=== PATIENT | female | born 1965 | race African-American/Black ===

== ENCOUNTER → 2020-03-28 16:51 | Outpatient (CLI) | payer OTHER, SELFPAY ==
--- NOTE | ~2020-03-28 | XR_ITS ---
XR abdomen/kub 1V 03/28/2020 17:21 Indication: Abdominal pain Procedure: KUB Comparison: No prior studies for comparison. Findings: Bowel gas pattern is nonobstructive. Moderate colonic fecal loading. No abnormal calcificat ions to suggest renal stone. Lung bases unremarkable. Mild levocurvature of the lumbar spine. No acut e osseous abnormality. There are pelvic phleboliths. Impression: 1: Nonobstructive bowel gas pattern. Reviewed, dictated and finalized at location A. Impression: 1: Nonobstructive bowel gas pattern.
== END ==
PROVIDERS: PCP Family Medicine; Visit Provider Nurse Practitioner Family
DX: R10.9 Unspecified abdominal pain (principal); Z87.442 Personal history of urinary calculi
CPT/HCPCS: 74018

== ENCOUNTER 2020-04-02 13:51 | Outpatient (RCR) | payer OTHER, SELFPAY | END 2020-07-01 23:59 | disposition home or self-care (01) | LOC: ANHDMC 13:51 | PROVIDERS: PCP Family Medicine; Visit Provider Nurse Practitioner Family | DX: E11.43 Type 2 diabetes mellitus with diabetic autonomic (poly)neuropathy (principal); Z71.89 Other specified counseling | CPT/HCPCS: G0108 ==

== ENCOUNTER 2020-09-24 14:05 | Outpatient (RCR) | payer OTHER, SELFPAY | END 2020-12-09 14:14 | disposition home or self-care (01) | LOC: ANHDMC 14:05 | PROVIDERS: PCP Family Medicine; Visit Provider Nurse Practitioner Family | DX: E11.43 Type 2 diabetes mellitus with diabetic autonomic (poly)neuropathy (principal); Z71.89 Other specified counseling | CPT/HCPCS: G0108 ==

== ENCOUNTER 2021-05-22 14:00 | Outpatient (RCR) | payer OTHER, SELFPAY | END 2021-06-23 09:21 | disposition home or self-care (01) | LOC: ANHDMC 14:00 | PROVIDERS: PCP Family Medicine; Referring Provider Nurse Practitioner Family; Visit Provider Nurse Practitioner Family | DX: E11.43 Type 2 diabetes mellitus with diabetic autonomic (poly)neuropathy (principal); Z71.89 Other specified counseling | CPT/HCPCS: G0108 ==

== ENCOUNTER 2021-11-13 13:58 | Outpatient (RCR) | payer OTHER, SELFPAY | END 2022-02-02 13:58 | disposition home or self-care (01) | LOC: ANHDMC 13:58 | PROVIDERS: PCP Family Medicine; Referring Provider Nurse Practitioner Family; Visit Provider Nurse Practitioner Family | DX: E11.43 Type 2 diabetes mellitus with diabetic autonomic (poly)neuropathy (principal); E11.65 Type 2 diabetes mellitus with hyperglycemia; Z71.89 Other specified counseling | CPT/HCPCS: G0108 ==

== ENCOUNTER 2022-05-25 15:28 | Outpatient (CLI) | payer OTHER, SELFPAY ==
--- NOTE | 2022-05-25 15:37 | ECG_ITS ---
Measurements Intervals Star Rate: 100 P: 63 IA: 140 QRS: 58 QRSD: 85 T: -11 QT: 352 QTc: 455 Interpretive Statements SINUS TACHYCARDIA POSSIBLE LEFT ATRIAL ENLARGEMENT [-0.1mV P WAVE IN V1/V2] NONSPECIFIC ST AND T-WAVE ABNORMALITY NO PREVIOUS ECG AVAILABLE FOR COMPARISON Electronically Signed On 05-25-2022 15:57:56 CDT by Jerrell Goodwin M.D.
== END 2022-05-25 15:29 | disposition home or self-care (01) ==
LOC: ANHCARD 15:30
PROVIDERS: PCP Family Medicine; Visit Provider Nurse Practitioner Family
DX: Z01.810 Encounter for preprocedural cardiovascular examination (principal)
CPT/HCPCS: 93005

== ENCOUNTER 2022-07-23 15:30 | Outpatient (RCR) | payer OTHER, SELFPAY | END 2022-08-11 09:45 | disposition home or self-care (01) | LOC: ANHDMC 15:30 | PROVIDERS: PCP Family Medicine; Referring Provider Nurse Practitioner Family; Visit Provider Nurse Practitioner Family | DX: E11.43 Type 2 diabetes mellitus with diabetic autonomic (poly)neuropathy (principal); E11.65 Type 2 diabetes mellitus with hyperglycemia; Z71.89 Other specified counseling | CPT/HCPCS: G0108 ==

== ENCOUNTER 2022-08-09 11:49 | Emergency (ER) | payer OTHER, SELFPAY ==
[2022-08-09 12:01] VITALS: BP 194/102; PULSE 101; RESP 16; TEMP 36.4; O2SAT 99
--- NOTE | 2022-08-09 12:27 | ED.ABDPAIN ---
HPI - Abdominal Pain General Chief Complaint: Nausea/Vomiting/Diarrhea Stated Complaint: n/v/d Time Seen by Provider: 08/09/22 12:27 Source: patient, RN notes reviewed and old records reviewed Mode of arrival: ambulatory Limitations: no limitations History of Present Illness HPI narrative: 56-year-old female with a history of hypertension and diabetes presents to the [facility] with nausea and abdominal pain that started about an hour and a half prior to arrival. Had similar symptoms a week ago. Patient takes her blood pressure medication at night. States she did not use her insulin today because she thought she was going to need some testing. Per patient's [employer] blood sugar 343 MD elicited complaint: abdominal pain Pertinent past history: other (Diabetes) Related Data Home Medications Medication Instructions Recorded Confirmed blood-glucose meter (Contour Meter) #1 ea 10/19/19 05/28/22 amlodipine 10 mg-benazepril 40 mg 1 cap PO DAILY 05/22/22 05/28/22 capsule insulin lispro protamine-lispro 40 unit subcut BID 07/30/22 100 unit/mL (75-25) subcutaneous pen (Humalog Mix 75-25 KwikPen) prednisone ophthalmic (eye) 07/30/22 B Complex-Vitamin B12 08/09/22 Iron 08/09/22 ascorbate sodium (vitamin C) 08/09/22 prednisolone acetate 1 % eye drp 08/09/22 drops,suspension Allergies Allergy/AdvReac Type Severity Reaction Status Date / Time gabapentin Allergy Severe nausea Verified 08/09/22 11:52 mold Allergy Unknown Unknown Verified 08/09/22 11:52 metformin AdvReac Mild Nausea and Verified 08/09/22 11:52 Vomiting Review of Systems Review of Systems: All systems reviewed & are unremarkable except as noted in HPI and below Constitutional: Constitutional: Reports no additional constitutional complaints, Denies chills and Denies fever(s) Eyes: Eyes: Reports no additional eye complaints ENT: Reports system reviewed and no additional complaints, except as documented Cardiovascular: Cardiovascular: Reports no additional cardiovascular complaints Respiratory: Respiratory: Reports no additional respiratory complaints Gastrointestinal: Gastrointestinal: Reports as per HPI, Reports abdominal pain, Denies bloating, Denies constipation, Reports nausea and Denies vomiting Musculoskeletal: Musculoskeletal: Reports no additional musculoskeletal complaints Integumentary/Breasts: Skin/Breast: Reports system reviewed and no additional complaints, except as docu Neurologic: Reports system reviewed and no additional complaints, except as documented Psychiatric: Psychiatric: Reports no additional psychiatric complaints Allergic/Immunologic: Allergic/Immunologic: Reports no additional allergic/immunologic complaints PMFSH Past Medical History Medical History Diabetic autonomic neuropathy associated with type 2 diabetes mellitus (~2017) Diabetic retinopathy Essential (primary) hypertension (~2004) History of calculus of kidney during Hyperlipidemia, unspecified Peptic gastritis Sickle-cell disease without crisis Type 2 diabetes mellitus with hyperglycemia (~2004) Vitamin D deficiency, unspecified (~2017) Surgical History Surgical History H/O inguinal hernia repair (~1964) repeat: 1966, 1973 (bilateral repair:Children[facility] repair) H/O: hysterectomy (~2008) d/t fibroids: w/o oophorectomy History of eye surgery 06/23/2022, bilateral Family History Family History Father Malignant neoplasm of prostate, Onset Age: 72 Patient's father is Mother Family history of diabetes mellitus in first degree relative Other Depression Diabetes mellitus Family history of blood dyscrasia Family history of cardiovascular disease Family history of hearing loss Hypertension Social History Social History (Reviewed 08/09/22 @ 13
--- NOTE | 2022-08-09 12:34 | PC.NURSE ---
provider to provider report in progress.
== END 2022-08-09 12:40 | disposition short-term general hospital (02) ==
LOC: EXPCOLL 11:56
PROVIDERS: Emergency Provider Nurse Practitioner; PCP Family Medicine
DX: R10.12 Left upper quadrant pain (principal); E11.65 Type 2 diabetes mellitus with hyperglycemia; Z79.4 Long term (current) use of insulin; I10 Essential (primary) hypertension; E11.43 Type 2 diabetes mellitus with diabetic autonomic (poly)neuropathy; E11.319 Type 2 diabetes mellitus with unspecified diabetic retinopathy without macular edema; E78.5 Hyperlipidemia, unspecified; D57.1 Sickle-cell disease without crisis
CPT/HCPCS: 99212; G0463

== ENCOUNTER 2022-08-09 13:01 | Emergency (ER) | payer OTHER, SELFPAY ==
--- NOTE | ~2022-08-09 | XR_ITS ---
EXAM: XR abdomen/kub 1V DATE: 08/09/2022 14:24 HISTORY: Left upper quadrant pain . COMPARISON: CT abdomen and pelvis, same date. FINDINGS: Normal bowel gas pattern. No organomegaly. Excreted contrast in the collecting system. Pel karyn phleboliths. Mild degenerative change in lumbar spine. IMPRESSION: No radiographic evidence of obstruction or ileus. Reviewed, dictated and finalized at location K.
--- NOTE | ~2022-08-09 | CT_ITS ---
EXAMINATION: CT abdomen pelvis w con DATE: 08/09/2022 14:22 INDICATION: Left upper quadrant pain TECHNIQUE: Computed tomography (CT) of the abdomen and pelvis was performed with 100 mL Omnipaque-350 intravenous contrast. Automated exposure control and iterative reconstruction technique were employe d. The dose-length product was 370.83 mGy-cm. COMPARISON: 06/29/2018. FINDINGS: Lower thorax: Small hiatal hernia. Liver: Mild enlargement. Fatty infiltration. Biliary/Gallbladder: Gallbladder is normal. No bile duct dilation. Pancreas: No mass or duct dilation. Spleen: Normal. Adrenals:No mass. Kidneys: No mass, stone, or hydronephrosis. GI tract: Distal esophageal and gastric wall edema. No small or large bowel dilation. Normal appendix . Mild scattered diverticulosis without diverticulitis. Mesentery/Peritoneum: No ascites, mass, or free air. Retroperitoneum: No mass. Mild atherosclerotic abdominal aortic and/or arterial calcifications. Pelvis: Uterus is absent, remaining pelvic organs are within normal limits. Soft Tissues: Soft tissues and body wall unremarkable. Bones: No acute osseous finding. IMPRESSION: Mild hepatomegaly. Steatosis. Esophagitis/gastritis. No CT evidence of urolithiasis, obstructive urop athy, or diverticulitis. Reviewed, dictated and finalized at location K. IMPRESSION: Mild hepatomegaly. Steatosis. Esophagitis/gastritis. No CT evidence of urolithi asis, obstructive uropathy, or diverticulitis.
[2022-08-09 13:09] VITALS: BP 156/91; PULSE 102; RESP 12; TEMP 36.4; O2SAT 99
--- NOTE | 2022-08-09 13:32 | ED.ABDPAIN ---
HPI - Abdominal Pain General Chief Complaint: Abdominal Pain Stated Complaint: Left sided abdominal pain, sent from urgent care Time Seen by Provider: 08/09/22 13:30 Source: patient and family Mode of arrival: ambulatory Limitations: no limitations History of Present Illness HPI narrative: 56 years old -Portuguese female presents with periodic left abdominal pain for months. Got worse today. She denies any fever, chills, vomiting, diarrhea, constipation, urinary symptoms, vaginal bleeding or discharge also denies any shortness of breath, chest pain or respiratory symptoms Related Data Home Medications Medication Instructions Recorded Confirmed blood-glucose meter (Contour Meter) #1 ea 10/19/19 05/28/22 amlodipine 10 mg-benazepril 40 mg 1 cap PO DAILY 05/22/22 05/28/22 capsule insulin lispro protamine-lispro 40 unit subcut BID 07/30/22 100 unit/mL (75-25) subcutaneous pen (Humalog Mix 75-25 KwikPen) prednisone ophthalmic (eye) 07/30/22 B Complex-Vitamin B12 08/09/22 Iron 08/09/22 ascorbate sodium (vitamin C) 08/09/22 prednisolone acetate 1 % eye drp 08/09/22 drops,suspension Allergies Allergy/AdvReac Type Severity Reaction Status Date / Time gabapentin Allergy Severe nausea Verified 08/09/22 11:52 mold Allergy Unknown Unknown Verified 08/09/22 11:52 metformin AdvReac Mild Nausea and Verified 08/09/22 11:52 Vomiting Review of Systems Review of Systems: All systems reviewed & are unremarkable except as noted in HPI and below PMFSH Past Medical History Medical History Diabetic autonomic neuropathy associated with type 2 diabetes mellitus (~2017) Diabetic retinopathy Essential (primary) hypertension (~2004) History of calculus of kidney during Hyperlipidemia, unspecified Peptic gastritis Sickle-cell disease without crisis Type 2 diabetes mellitus with hyperglycemia (~2004) Vitamin D deficiency, unspecified (~2017) Surgical History Surgical History H/O inguinal hernia repair (~1964) repeat: 1966, 1973 (bilateral repair:Children's repair) H/O: hysterectomy (~2008) d/t fibroids: w/o oophorectomy History of eye surgery 06/23/2022, bilateral Family History Family History Father Malignant neoplasm of prostate, Onset Age: 72 Patient's father is Mother Family history of diabetes mellitus in first degree relative Other Depression Diabetes mellitus Family history of blood dyscrasia Family history of cardiovascular disease Family history of hearing loss Hypertension Social History Social History Smoking status: Never smoker Second hand tobacco smoke exposure: No Alcohol intake: never Substance use: never Additional living arrangements comments: w son 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: 3 11/30 sites Gender identity (if verbalized by the patient): Female Spiritual care concerns: No (Samaritan: Scientologist: active) Agree to blood products: Yes Exam Narrative: General appearance: Well-developed, well-nourished Skin: Normal color Head: Normocephalic, nontraumatic Eyes: Clear conjunctiva ENT: Oropharynx normal, ears normal, nose normal Neck: Supple, nontender Chest and respiratory: Airway patent, no respiratory distress, no accessory muscle use Heart: Regular rate/rhythm Abdomen: Soft, tenderness left upper quadrant, no organomegaly, quiet bowel sounds Vascular: Normal peripheral pulses, normal capillary refill. Musculoskeletal: Normal range of motion, nontender back Neurologic: Alert and oriented ?3, [employer]IC is normal as tested, no gross motor deficit
[2022-08-09 13:58] LABS: Basophils Percent Auto 0.5 % (0.2-1.2); Eosinophils Absolute Auto 0.1 K/mm3 (0-0.3); Eosinophils Percent Auto 0.8 % (0-4.4); Hematocrit 42.5 % (37.0-47.0); Hemoglobin 14.2 g/dL (12.0-15.0); Immature Granulocyte Absolute 0.02 K/mm3 (0.00-0.031); Immature Granulocyte Percent A 0.3 % (0-0.5); Lymphocytes Percent Auto 26.7 % (18.3-44.2); Mean Corpuscular HGB Conc 33.4 g/dl (32-36); Mean Corpuscular Hemoglobin 26.9 pg (26-34); Mean Corpuscular Volume 80.6 fl (80-100); Mean Platelet Volume 9.8 fl (7.4-10.4); Monocytes Absolute Auto 0.5 K/mm3 (0.1-0.6); Monocytes Percent Auto 6.8 % (2.6-8.5); Neutrophils Absolute Auto 4.9 K/mm3 (1.3-6.7); Neutrophils Percent Auto 64.9 % (45.5-73.1); Platelet Count Result 279 k/mm3 (150-375); Red Blood Count 5.27 M/mm3 (4.2-5.4); Red Cell Distribution Width 13.5 % (11.5-14.5); White Blood Count 7.5 K/mm3 (4.5-10.0)
[2022-08-09 14:00] LABS: Appearance Urine Clear (Clear); Bilirubin Urine Negative (Negative); Blood Urine Negative (Negative); Color Urine Yellow (Yellow); Glucose Urine UA 3+ mg/dL (Negative); Ketones Urine 1+ mg/dL (Negative); Leukocyte Esterase Ur Trace LEU/UL (Negative); Nitrate Urine Negative (Negative); Protein Urine Negative (Negative); Specific Grav Ur 1.015 (1.001-1.035); Urobilinogen Urine 0.2 mg/dL (<2.0); pH Urine 6.5 (5.0-9.0)
[2022-08-09 14:08] LABS: Alanine Aminotransferase 38 U/L (6-35); Albumin Level 4.7 g/dL (3.5-5.1); Alkaline Phosphatase 111 U/L (38-126); Anion Gap 11 mmol/L (8-16); Aspartate Amino Transferase 33 U/L (14-36); Bilirubin,Total 0.6 mg/dL (0.2-1.3); Blood Urea Nitrogen 14 mg/dL (7-17); Calcium 9.6 mg/dL (8.4-10.2); Carbon Dioxide 26 mmol/L (22-30); Chloride 100 mmol/L (98-107); Estimated CRCL calculation 72 ml/min; Estimated Glomerular Filt Rate > 60; Glucose 333 mg/dL (65-110); Lipase 29 U/L (23-300); Potassium 3.9 mmol/L (3.4-5.0); Sodium 137 mmol/L (137-145)
[2022-08-09 14:23] LABS: Mucus Urine Rare /lpf; RBC Urine 0-2 /hpf (0-2); Squamous Epithelial Cell Urine Rare /hpf (Few)
[2022-08-09 14:29] LABS: Add Urine Microscopic? YES
[2022-08-09] MEDS: SODIUM CHLORIDE 0.9% IV 1,000 ML 999 ML IV CONT (14:56)
[2022-08-09] MEDS: ONDANSETRON INJ 4 MG/2 ML VIAL IV PUSH (14:56)
[2022-08-09 14:58] VITALS: BP 151/87; PULSE 91; RESP 16; O2SAT 100
[2022-08-09 15:52] VITALS: BP 153/82; PULSE 98; RESP 16; O2SAT 100
== END 2022-08-09 15:53 | disposition home or self-care (01) ==
PROVIDERS: Emergency Provider Emergency Medicine; PCP Family Medicine
DX: R10.9 Unspecified abdominal pain (principal); E11.43 Type 2 diabetes mellitus with diabetic autonomic (poly)neuropathy; E11.319 Type 2 diabetes mellitus with unspecified diabetic retinopathy without macular edema; I10 Essential (primary) hypertension; E78.5 Hyperlipidemia, unspecified; E55.9 Vitamin D deficiency, unspecified; Z87.442 Personal history of urinary calculi; Z79.4 Long term (current) use of insulin; Z90.710 Acquired absence of both cervix and uterus; K76.0 Fatty (change of) liver, not elsewhere classified; K20.90 Esophagitis, unspecified without bleeding; K29.70 Gastritis, unspecified, without bleeding
CPT/HCPCS: 36415; 74018; 74177; 80053; 81001; 83690; 85025; 96361; 96374; 99284; J2405; J7030; Q9967

== ENCOUNTER 2022-09-03 15:29 | Outpatient (RCR) | payer OTHER, SELFPAY | END 2022-11-24 08:22 | disposition home or self-care (01) | LOC: ANHDMC 15:29 | PROVIDERS: PCP Family Medicine; Referring Provider Nurse Practitioner Family; Visit Provider Nurse Practitioner Family | DX: E11.43 Type 2 diabetes mellitus with diabetic autonomic (poly)neuropathy (principal); Z71.89 Other specified counseling | CPT/HCPCS: G0108 ==

== ENCOUNTER 2024-06-09 08:17 | Outpatient (RCR) | payer BC, SELFPAY ==
[2024-06-09 08:30] VITALS: BMI 25.0
== END 2024-08-28 14:23 | disposition home or self-care (01) ==
LOC: ANHWOC 08:17
PROVIDERS: PCP Family Medicine; Visit Provider Nurse Practitioner Family
DX: E13.621 Other specified diabetes mellitus with foot ulcer (principal); L97.509 Non-pressure chronic ulcer of other part of unspecified foot with unspecified severity
CPT/HCPCS: 99213; G0463

== ENCOUNTER 2024-11-17 11:30 | Outpatient (CLI) | payer BC, SELFPAY ==
[2024-11-17 18:45] LABS: Hemoglobin A1C 8.4 % (<5.7)
[2024-11-17 18:49] LABS: Free T4 Free Thyroxine 1.26 ng/dL (0.78-2.19); Vitamin D 25 Hydroxy 27.4 ng/mL
[2024-11-17 18:54] LABS: Alanine Aminotransferase 21 U/L (6-35); Albumin Level 4.4 g/dL (3.5-5.1); Alkaline Phosphatase 78 U/L (38-126); Anion Gap 5 mmol/L (4-12); Aspartate Amino Transferase 51 U/L (14-36); Bilirubin,Total 0.5 mg/dL (0.2-1.3); Blood Urea Nitrogen 15 mg/dL (7-17); Calcium 9.6 mg/dL (8.4-10.2); Carbon Dioxide 32 mmol/L (22-30); Chloride 104 mmol/L (98-107); Cholesterol 233 mg/dL (0-200); Estimated Glomerular Filt Rate > 60; Glucose 143 mg/dL (65-110); HDL Direct 54 mg/dL; LDL Cholesterol Direct 127 mg/dL; Potassium 3.9 mmol/L (3.4-5.0); Sodium 141 mmol/L (137-145); Thyroid Stimulating Hormone 0.856 uIU/mL (0.465-4.680); Triglycerides 137 mg/dL (<150)
[2024-11-17 19:23] LABS: Creatinine Urine 59.5 mg/dL
[2024-11-17 19:27] LABS: MALB Creatinine Ratio 13.9 mg/g (0-30); Microalbumin Urine Random 8.3 mg/L (0-16.7)
== END 2024-11-17 11:31 | disposition home or self-care (01) ==
LOC: ANHGOSHLAB 11:31
PROVIDERS: PCP Family Medicine; Visit Provider Nurse Practitioner Family
DX: E11.65 Type 2 diabetes mellitus with hyperglycemia (principal); I10 Essential (primary) hypertension; E11.69 Type 2 diabetes mellitus with other specified complication; R78.5 Finding of other psychotropic drug in blood; E11.43 Type 2 diabetes mellitus with diabetic autonomic (poly)neuropathy; E55.9 Vitamin D deficiency, unspecified
CPT/HCPCS: 36415; 80053; 80061; 82043; 82306; 82607; 83036; 84439; 84443

== ENCOUNTER 2025-09-04 14:27 | Outpatient (CLI) | payer BC, SELFPAY ==
--- NOTE | ~2025-09-04 | MM_ITS ---
EXAMINATION: MM screening rogerio BI w nick HISTORY: Screening TECHNIQUE: Craniocaudal and mediolateral oblique 3-D tomosynthesis images were obtained and synthetic 2-D images were generated. CAD analysis was submitted and interpreted. COMPARISON: Comparison to multiple prior studies sequentially, with oldest reviewed study dated 02/04/2019 BREAST PARENCHYMAL COMPOSITION: The breasts are heterogeneously dense, which may obscure small masses. FINDINGS: There is no evidence of suspicious mass, calcification, or architectural distortion to suggest malignancy in either breast. IMPRESSION: 1. No mammographic evidence of malignancy. 2. Recommend routine screening mammography in one year. BI-RADS Category 1: Negative Reviewed, dictated and finalized at location B.
== END 2025-09-04 14:28 | disposition home or self-care (01) ==
PROVIDERS: PCP Family Medicine; Visit Provider Nurse Practitioner Family
DX: Z12.31 Encounter for screening mammogram for malignant neoplasm of breast (principal)
CPT/HCPCS: 77063; 77067